=== PATIENT | female | born 1955 | race Caucasian/White ===

== ENCOUNTER → 2019-03-16 10:29 | Outpatient (BNVA) | payer MEDICARE, SELFPAY | PROVIDERS: Family Provider Nurse Practitioner; PCP Nurse Practitioner; Visit Provider Nurse Practitioner Psychiatric/Mental Health | DX: F15.20 Other stimulant dependence, uncomplicated (principal); F43.12 Post-traumatic stress disorder, chronic; F60.3 Borderline personality disorder; F17.210 Nicotine dependence, cigarettes, uncomplicated | CPT/HCPCS: 99214 ==

== ENCOUNTER → 2019-05-28 08:11 | Outpatient (BNVA) | payer BC, MEDICARE, SELFPAY | PROVIDERS: Family Provider Nurse Practitioner; PCP Nurse Practitioner; Visit Provider Nurse Practitioner Psychiatric/Mental Health | DX: F33.1 Major depressive disorder, recurrent, moderate (principal); F43.12 Post-traumatic stress disorder, chronic; F60.3 Borderline personality disorder; F15.20 Other stimulant dependence, uncomplicated; F17.210 Nicotine dependence, cigarettes, uncomplicated | CPT/HCPCS: 99214 ==

== ENCOUNTER → 2019-07-09 08:00 | Outpatient (BNVA) | payer MEDICARE, SELFPAY | PROVIDERS: Family Provider Nurse Practitioner; PCP Nurse Practitioner; Visit Provider Social Worker Clinical | DX: F33.1 Major depressive disorder, recurrent, moderate (principal); F60.3 Borderline personality disorder; F43.12 Post-traumatic stress disorder, chronic; F15.20 Other stimulant dependence, uncomplicated | CPT/HCPCS: 90834 ==

== ENCOUNTER 2019-08-13 09:05 | Outpatient (CLI) | payer MEDICARE, SELFPAY ==
--- NOTE | 2019-08-13 09:12 | MM_ITS ---
WS: [id number] BILATERAL DIGITAL SCREENING MAMMOGRAPHY WITH CAD CLINICAL INFORMATION: SCREENING HISTORY: Screening mammogram. No current complaints. COMPARISON: TECHNIQUE: Bilateral CC and MLO views. FINDINGS: Scattered fibroglandular densities bilaterally. No suspicious focal mass, asymmetry, calcifications, or architectural distortion. No evidence of malignancy. Stable asymmetric densities and isodense nodu les anterior right breast. Stable asymmetric densities left breast. MM/[place] [id number] IMPRESSION: BI-RADS: 2-Benign FOLLOW UP: 1 Year Follow-up Recommend return to annual screening mammography.
== END 2019-08-13 09:06 | disposition home or self-care (01) ==
LOC: RADSHAW 09:08
PROVIDERS: PCP Internal Medicine; Visit Provider Internal Medicine
DX: Z12.31 Encounter for screening mammogram for malignant neoplasm of breast (principal)
CPT/HCPCS: 77067

== ENCOUNTER 2019-08-27 20:43 | Emergency (ER) | payer MEDICARE, SELFPAY ==
[2019-08-27 20:45] VITALS: BP 155/80; PULSE 96; RESP 18; TEMP 36.6; O2SAT 98
[2019-08-27 20:52] VITALS: BP 187/92; PULSE 97; RESP 17; O2SAT 95
--- NOTE | 2019-08-27 20:55 | ED_ITS ---
HPI - Female Genitourinary General: Chief complaint: Urogenital-Female Stated complaint: REDDNESS TO VAG Time Seen by Provider: 08/27/19 20:55 History of Present Illness: HPI Narrative: Patient is a 63-year-old female comes to the ED with itching and redness of the vagina. Patient says symptoms started 2 weeks ago. She says the main symptom is itching. She is put triple antibiotic ointment on vagina and Vicks vapor rub to try and help with symptoms. She denies any pain or tenderness with genital rash. Denies dysuria, hematuria, vaginal discharge, vaginal bleeding, fever, abdominal pain, nausea/vomiting, diarrhea or constipation. Associated symptoms: Deny abdominal pain, headache(s), nausea or vaginal discharge Review of Systems Const: Denies: fever(s), chills or fatigue Eyes: Denies: change in vision or eye discomfort ENMT: Denies: throat pain, odynophagia, nasal discharge or nasal congestion Card: Denies: chest pain, palpitations, edema, swelling of feet/ankles, dyspnea on exertion or orthopnea Resp: Denies: dyspnea, productive cough or non-productive cough GI: Denies: abdominal pain, nausea, vomiting, diarrhea, constipation or hematochezia : Reports: genital pruritis; Denies: flank pain, difficulty voiding, dysuria, hematuria, genital lesions, vaginal bleeding or vaginal discharge Musc: Denies: neck pain, back pain or extremity swelling Skin/Breast: Denies: rash or new lesions Neuro: Denies: headache(s), numbness in extremities or weakness in extremities PFS ED PFSH: Medical History Amphetamine addiction Borderline personality disorder CAD (coronary artery disease) Chronic post-traumatic stress disorder COPD (chronic obstructive pulmonary disease) DDD (degenerative disc disease), cervical DDD (degenerative disc disease), lumbar GERD (gastroesophageal reflux disease) Hypertension Major depressive disorder, recurrent episode, moderate with anxious distress Nicotine dependence, cigarettes, uncomplicated Polyneuropathy PTSD (post-traumatic stress disorder) RLS (restless legs syndrome) Type 1 diabetes mellitus with hyperglycemia, with long-term current use of insulin Surgical History History of carpal tunnel release of both wrists History of PTCA Hx of bilateral salpingectomy Hx of cholecystectomy Hx of hysterectomy Hx of neck surgery Hx of reduction mammoplasty Hx of shoulder surgery Hx of spinal fusion Family History Son No problems noted. Sister Cancer Sister No problems noted. Sister No problems noted. Mother Diabetes Other Hypertension Social History Smoking and tobacco status: current every day smoker cigarettes Second hand smoke exposure: No Smoking risk assessment/counseling performed?: No Alcohol intake: never Desire information about alcohol rehabilitation?: No Desire information about substance/drug rehabilitation?: No Counseling given: No Current gender identity: Female Physical Exam Const: COMMON NORMALS: no acute distress, patient oriented x3 and alert GENERAL APPEARANCE: cooperative and comfortable HENMT: COMMON NORMALS: normocephalic HEAD & SCALP: normocephalic MOUTH: Normal oral and palatal mucosa present THROAT: posterior oropharynx normal and uvula midline Neck/C-Spine: COMMON NORMALS: supple GENERAL: Yes normal visual inspection Resp: COMMON NORMALS: normal respiratory effort, No retractions, No use of accessory muscles and clear to auscultation bilaterally AUSCULTATION: clear to auscultation bilaterally Cardio: COMMON NORMALS: regular rate, regular rhythm, S1 normal heart sound present, S2 normal heart sound present, No gallops present (Cardio), No clicks present (Cardio), No murmurs present (Cardio) and Peripheral pulses 2+ through out RATE: regular rate RHYTHM: regular rhythm HEART SOUNDS: S1 normal heart sound present and S2 normal heart sound present PERIPHERAL PULSES: Peripheral pulses 2+ throughout GI: COMMON NORMALS: Normal to inspection, nondistended, normoactive bowel sounds present, Soft to palpation, non-tender and no masses PALPATION: Yes Soft to palpation : COMMON NORMALS: Yes no CVA tenderness BLADDER/KIDNEY EXAM: Yes no CVA tenderness EXTERNAL FEMALE EXAM: Yes erythema, No externally tender, Yes external swelling and No lesion OTHER: During genital exam nurse was in the room. Patient's vagina had erythema but no tenderness. No vaginal discharge or lesions seen. Genital area appeared to have lichen sclerosus. LAMAR wet prep was performed as well during exam. Back/Pelvis: COMMON NORMALS: no CVA tenderness Extremity: COMMON NORMALS: normal to inspection and no pedal edema Neuro: COMMON NORMALS: patient oriented x3 and moves all extremities SENSORIUM/ORIENTATION: Yes alert Skin: GENERAL SKIN EXAM: dry skin Course Vital Signs: Vital signs: Vital Signs Temperature 97.8 F 08/27/19 20:45 Pulse Rate 97 08/27/19 20:52 Respiratory Rate 17 08/27/19 20:52 Blood Pressure 187/92 08/27/19 20:52 Pulse Oximetry 95 08/27/19 20:52 MDM - Female MDM Narrative: Medical decision making narrative: Patient is a 63-year-old female comes to the ED with general itching and erythema. Physical exam of the genital area showed some erythema and thickness of the genital area. No tenderness, vaginal discharge or bleeding seen. LAMAR wet prep was performed and it showed no BV, trichomonas or candidiasis. UA was unremarkable. With patient's symptoms and appearance of genital area she was diagnosed with lichen sclerosus of female genitalia. I ordered patient to receive some triamcinolone ointment while here in the ED. Discharge paperwork was complete and I was sending patient home with a prescription for triamcinolone ointment. When I went to the room to talk with patient about discharge she was not present. Nurse said that she has checked on patient's room multiple times and it appears that she has left AMA without getting any discharge instructions. Lab Data: Attestation: I reviewed the patient's lab results. Labs: Lab Results 08/27/19 Range/Units 20:55 Urine Color Yellow (Yellow) Urine Appearance Clear (CLEAR) Urine pH 7 (5-7) Ur Specific Gravit y 1.005 (1.005-1.030) Urine Protein Neg (Negative) Urine Glucose (UA) 4+ H (Normal) Urine Ketones Negative (Negative) Urine Blood Neg (Negative) Urine Nitrate Negative (Negative) Urine Bilirubin Neg (NEGATIVE) Urine Urobilinogen Norm (Negative) mg/dL Ur Leukocyte Margarita ase Negative (Negative) Urine RBC None (0-2) /hpf Urine WBC None (0-5) /hpf Ur Squamous Epith Cells 0-4 H (0-5) Ur Transition Epit h Cell None /hpf Ur Renal Epithelia l Cell None /hpf Urine Bacteria None (NONE) Discharge Plan Discharge Patient Disposition: Home, Self-Care Clinical Impression: Lichen sclerosus of female genitalia Condition: Stable Prescriptions: New triamcinolone acetonide 0.1 % ointment 1 applic TOPICAL DAILY Qty: 30 RF: 0 No Action Victoza 2-Kip 0.6 mg/0.1 mL (18 mg/3 mL) pen injector 1.2 mg SUBCUT Q24H RF: 0 Humalog U-100 Insulin 100 unit/mL cartridge See Rx Instructions SUBCUT TID RF: 0 albuterol sulfate [ProAir HFA] 90 mcg/actuation HFA aerosol inhaler 2 puff INHALATION Q4H PRNRF: 0 venlafaxine [Effexor XR] 150 mg capsule,extended release 24hr 150 mg PO QAM Qty: 30 RF: 3 trazodone 100 mg tablet 300 mg PO .bedtime Qty: 90 RF: 3 hydroxyzine HCl 50 mg tablet 50 mg PO TID PRN (Reason: anxiety) Qty: 90 RF: 3 buspirone 15 mg tablet 15 mg PO TID Qty: 90 RF: 3 omeprazole 20 mg capsule,delayed release(DR/EC) 20 mg PO DAILY Qty: 30 RF: 2 metformin 1,000 mg tablet,ER shabbir.retention 24 hr 1,000 mg PO BID Qty: 60 RF: 2 meloxicam 15 mg tablet 15 mg PO DAILY Qty: 30 RF: 2 lisinopril 5 mg tablet 5 mg PO DAILY Qty: 30 RF: 2 furosemide 40 mg tablet 40 mg PO QAM Qty: 30 RF: 2 fluticasone propion-salmeterol [Wixela Inhub] 500-50 mcg/dose blister with device 1 inh INHALATION Q12H Qty: 60 RF: 2 rosuvastatin 40 mg tablet 40 mg PO DAILY Qty: 30 RF: 2 gabapentin 300 mg capsule 300 mg PO TID 90 Days Qty: 270 RF: 1 metoprolol succinate 25 mg tablet extended release 24 hr 25 mg PO ONCE 90 Days Qty: 90 RF: 0 ropinirole 1 mg tablet 1 mg PO TID 30 Days Qty: 90 RF: 1 Discharge Orders: Discharge Order (Routine); Ordered 08/27/19 Ordered By: Jean Quintero Referrals: Olivia Duke MD [Primary Care Provider] - Discharge Diet: Regular Discharge Activity: Resume usual activity Activity Restrictions/Additional Instructions: Follow-up with medical provider as directed in 7 days. Take medications as prescribed. Apply triamcinolone ointment on genital area daily to help with symptoms. Return to the ER or your medical provider if condition worsens. Please read and understand discharge instructions. If any questions, please ask. Discharge Date/Time: 08/27/19 23:34 Coding Level of Care Code ED Operations Supervisor Chemical Cleaning for Lor Fwd Exam Comprehensive
[2019-08-27 21:53] LABS: Bilirubin Urine Neg (NEGATIVE); Blood Urine Neg (Negative); Glucose Urine UA 4+ (Normal); Ketones Urine Negative (Negative); Leukocyte Esterase Urine Negative (Negative); Nitrate Urine Negative (Negative); Protein Urine Neg (Negative); Specific Gravity, Urine 1.005 (1.005-1.030); Urine Appearance Clear (CLEAR); Urine Color Yellow (Yellow); Urobilinogen Urine Norm (Negative); pH Urine 7 (5-7)
[2019-08-27 21:54] LABS: Add Urine Culture? No; Squamous Epithelial Cell Urine 0-4 (0-5)
--- NOTE | 2019-08-27 23:19 | PC.NURSE ---
ATTEMPTED TO DISCHARGE PT, PT NOT IN ROOM. LOOKED FOR PT IN WAITING AREA. REPORTED TO CHARGE NURSE THAT PT WAS NOT FOUND. WAS INSTRUCTED TO WAIT A LITTLE TIME LONGER AND ATTEMPT TO CALL PT AGAIN.
== END 2019-08-27 23:34 | disposition home or self-care (01) ==
PROVIDERS: Emergency Provider Physician Assistant; PCP Internal Medicine
DX: L90.0 Lichen sclerosus et atrophicus (principal); Z79.4 Long term (current) use of insulin; F17.210 Nicotine dependence, cigarettes, uncomplicated; I25.10 Atherosclerotic heart disease of native coronary artery without angina pectoris; J44.9 Chronic obstructive pulmonary disease, unspecified; I10 Essential (primary) hypertension; E10.9 Type 1 diabetes mellitus without complications
CPT/HCPCS: 12345; 81001; 87210; 99282; 99283

== ENCOUNTER → 2019-09-06 11:00 | Outpatient (BNVA) | payer MEDICARE, SELFPAY | PROVIDERS: Visit Provider Social Worker Clinical | DX: F33.1 Major depressive disorder, recurrent, moderate (principal); F60.3 Borderline personality disorder; F43.12 Post-traumatic stress disorder, chronic; F15.20 Other stimulant dependence, uncomplicated | CPT/HCPCS: 90834 ==

== ENCOUNTER 2019-09-07 10:12 | Emergency (ER) | payer MEDICARE, SELFPAY ==
[2019-09-07 10:18] VITALS: BP 126/75; PULSE 75; RESP 18; TEMP 37; O2SAT 94; BMI 38.6
--- NOTE | 2019-09-07 10:26 | W.ED.GENADLT ---
HPI - General Adult General: Stated complaint: HIGH BLOOD SUGAR Time Seen by Provider: 09/07/19 10:20 History of Present Illness: HPI narrative: Patient arrives via ambulance with complaints of high blood sugar over the last week. Denies any illnesses. Has she has had some blurry vision with the high blood sugar. MD complaint: Hyperglycemia Onset (ago): week(s) Severity: moderate Associated symptoms: Deny chest pain, dyspnea, headache(s), nausea, rash or vomiting Treatments prior to arrival: none Review of Systems Narrative: Elevated blood sugar Const: Denies: fever(s), chills or body aches Eyes: Reports: blurry vision; Denies: change in vision ENMT: Denies: throat pain or nasal congestion Card: Denies: chest pain or dyspnea on exertion Resp: Denies: dyspnea, productive cough or non-productive cough GI: Denies: abdominal pain, nausea or vomiting Musc: Denies: extremity pain Skin/Breast: Denies: rash Neuro: Denies: headache(s) Psych: Denies: anxiety or depression Chris/Lymph: Denies: easy bruising PFSH ED PFSH: Medical History (Updated 09/04/19 @ 00:00 by ) Amphetamine addiction Borderline personality disorder CAD (coronary artery disease) Chronic post-traumatic stress disorder COPD (chronic obstructive pulmonary disease) DDD (degenerative disc disease), cervical DDD (degenerative disc disease), lumbar GERD (gastroesophageal reflux disease) Hypertension Major depressive disorder, recurrent episode, moderate with anxious distress Nicotine dependence, cigarettes, uncomplicated Polyneuropathy PTSD (post-traumatic stress disorder) RLS (restless legs syndrome) Type 1 diabetes mellitus with hyperglycemia, with long-term current use of insulin Surgical History History of carpal tunnel release of both wrists History of PTCA Hx of bilateral salpingectomy Hx of cholecystectomy Hx of hysterectomy Hx of neck surgery Hx of reduction mammoplasty Hx of shoulder surgery Hx of spinal fusion Family History Son No problems noted. Sister Cancer Sister No problems noted. Sister No problems noted. Mother Diabetes Other Hypertension Social History Smoking and tobacco status: current every day smoker cigarettes Second hand smoke exposure: No Smoking risk assessment/counseling performed?: No Alcohol intake: never Desire information about alcohol rehabilitation?: No Desire information about substance/drug rehabilitation?: No Counseling given: No Current gender identity: Female Physical Exam Const: COMMON NORMALS: no acute distress, average body habitus and patient oriented x3 HENMT: COMMON NORMALS: normocephalic HEAD & SCALP: normal to inspection and normocephalic FACE & SINUS: normal facial exam Eye: COMMON NORMALS: conjunctivae normal GENERAL EYE: appearance normal, both eyes and all related structures CONJUNCTIVA: Yes conjunctivae normal Neck/C-Spine: COMMON NORMALS: no JVD Chest: COMMONS NORMALS: normal inspection of the chest Resp: COMMON NORMALS: normal respiratory effort and clear to auscultation bilaterally AUSCULTATION: clear to auscultation bilaterally Cardio: COMMON NORMALS: no JVD, regular rate and regular rhythm RATE: regular rate RHYTHM: regular rhythm GI: COMMON NORMALS: Normal to inspection, nondistended, normoactive bowel sounds present Extremity: COMMON NORMALS: normal to inspection and full ROM Neuro: COMMON NORMALS: patient oriented x3 Discharge Plan Discharge Prescriptions: No Action Victoza 2-Kip 0.6 mg/0.1 mL (18 mg/3 mL) pen injector 1.2 mg SUBCUT Q24H RF: 0 Humalog U-100 Insulin 100 unit/mL cartridge See Rx Instructions SUBCUT TID RF: 0 albuterol sulfate [ProAir HFA] 90 mcg/actuation HFA aerosol inhaler 2 puff INHALATION Q4H PRNRF: 0 venlafaxine [Effexor XR] 150 mg capsule,extended release 24hr 150 mg PO QAM Qty: 30 RF: 3 trazodone 100 mg tablet 300 mg PO .bedtime Qty: 90 RF: 3 hydroxyzine HCl 50 mg tablet 50 mg PO TID PRN (Reason: anxiety) Qty: 90 RF: 3 buspirone 15 mg tablet 15 mg PO TID Qty: 90 RF: 3 omeprazole 20 mg capsule,delayed release(DR/EC) 20 mg PO DAILY Qty: 30 RF: 2 metformin 1,000 mg tablet,ER shabbir.retention 24 hr 1,000 mg PO BID Qty: 60 RF: 2 meloxicam 15 mg tablet 15 mg PO DAILY Qty: 30 RF: 2 lisinopril 5 mg tablet 5 mg PO DAILY Qty: 30 RF: 2 furosemide 40 mg tablet 40 mg PO QAM Qty: 30 RF: 2 fluticasone propion-salmeterol [Wixela Inhub] 500-50 mcg/dose blister with device 1 inh INHALATION Q12H Qty: 60 RF: 2 rosuvastatin 40 mg tablet 40 mg PO DAILY Qty: 30 RF: 2 gabapentin 300 mg capsule 300 mg PO TID 90 Days Qty: 270 RF: 1 metoprolol succinate 25 mg tablet extended release 24 hr 25 mg PO ONCE 90 Days Qty: 90 RF: 0 ropinirole 1 mg tablet 1 mg PO TID 30 Days Qty: 90 RF: 1 triamcinolone acetonide 0.1 % ointment 1 applic TOPICAL DAILY Qty: 30 RF: 0 Coding Level of Care Code ED Demo Event Specialist for Lor [place]
[2019-09-07 10:30] VITALS: BP 129/83; PULSE 74; RESP 18; O2SAT 96
[2019-09-07 10:44] LABS: ABG PCO2 42.5 mmHg (35-45); ABG PH Result 7.39 (7.35-7.45); Arterial Blood Gas Hematocrit 38.4 % (37-47); Base Excess ABG 0.6 mmol/L (-2.0-2.0); Blood Gas Allen Test Pos; Blood Gas Operator Identificat AMH; Blood Gas Sample Site Radial, right; Blood Gas Sample Type Arterial; HCO3 ABG 25.7 mmol/L (22-26); Oxygen Device ROOM AIR; PO2 ABG 77.4 mmHg (80.0-100.0)
[2019-09-07 10:53] LABS: Basophils % 0.2 %; Eosinophils # 0.3 10^3/uL (0.0-0.8); Eosinophils % 3.4 %; Hematocrit 37.4 % (37.0-47.0); Hemoglobin 12.1 g/dL (11.5-15.3); Lymphocytes % 33.2 %; Mean Corpuscular HGB Conc 32.4 g/dL (30.0-36.0); Mean Corpuscular Hemoglobin 28.9 pg (28.0-34.0); Mean Corpuscular Volume 89.5 fL (81-99); Mean Platelet Volume 8.7 fL (7.4-10.4); Monocytes # 0.7 10^3/uL (0.2-0.9); Monocytes % 7.3 %; Neutrophils % 55.7 %; Nucleated Red Blood Cells % 0 %; Platelet Count 319 10^3/cmm (130-400); Red Blood Count 4.18 10^6/uL (4.1-5.3); Red Cell Distribution Width 12.9 % (12.1-15.1)
[2019-09-07] MEDS: sodium chloride 0.9% 1,000 ML 999 ML IV (10:53)
[2019-09-07 10:59] LABS: Glucose Point of Care 309 mg/dL (70-110)
[2019-09-07 11:04] LABS: Ketone (Acetest) Serum Negative (Negative)
[2019-09-07 11:08] LABS: Alanine Aminotransferase 11 U/L (0-33); Albumin Level 4.2 g/dL (3.5-5.2); Alkaline Phosphatase 100 IU/L (35-105); Anion Gap 14.9 (5-19); Aspartate Amino Transferase 14 U/L (0-32); Blood Urea Nitrogen 15 mg/dL (8-23); Calcium 9.4 mg/dL (8.5-10.5); Carbon Dioxide 24 mmol/L (22-29); Chloride 100 mmol/L (98-107); Globulin 2.2 g/dL (1.3-4.6); Glucose 285 mg/dL (65-115); Lipase 239 U/L (13-60); Osmolality Calculated 287 mOsm/kg (285-295); Potassium 3.9 mmol/L (3.5-5.1); Sodium 135 mmol/L (136-145); Total Bilirubin 0.2 mg/dL (0.15-1.2); Total Protein 6.4 g/dL (6.6-8.7)
--- NOTE | 2019-09-07 11:25 | CT_ITS ---
WS: [id number] CT ABDOMEN PELVIS TECHNIQUE: Contrast-enhanced CT of the abdomen and pelvis with coronal and sagittal reformatted image s. CLINICAL INFORMATION: pain, elevated lipase COMPARISON: CT 4 DLP: 2062.[address] scans at [facility] use at least one of these dose optimization techniques: automat ed exposure control; mA and/or kV adjustment per patient size (includes targeted exams where dose is matched to clinical indication); or iterative reconstruction. FINDINGS: Diffuse fatty infiltration of the liver. Prior cholecystectomy and hysterectomy. Chronic right rib fr actures with callus formation. Subsegmental atelectasis in the lung bases. Homogeneous pancreatic enhancement. No definite evidence of peripancreatic inflammation or edema to i ndicate acute pancreatitis. Portal vein and splenic veins are patent. Normal spleen. Small esophageal hiatal hernia. Adrenal glands are normal. Normal renal parenchymal enhancement. No hydronephrosis. N ormal renal cortical atrophy. No hydronephrosis. Ureters are decompressed. No abdominal lymphadenopat hy. No pelvic lymphadenopathy. Aortic calcification. Normal caliber abdominal aorta. Sigmoid diverticulosis. No evidence of acute diverticulitis. No evidence of high-grade obstruction. N ormal small and large bowel. Mild lumbar curve. Chronic compression with vertebroplasty changes at T12. Mild chronic anterior wedg ing at L1. CT/CT abdomen pelvis w con* [id number] IMPRESSION: 1. No definite evidence of pancreatitis or peripancreatic inflammation. 2. Hepatomegaly with diffuse fatty infiltration unchanged from previous. 3. Cholecystectomy and hysterectomy. 4. Small esophageal hiatal hernia. 5. Diverticulosis. No evidence of acute diverticulitis. 6. No other acute findings.
[2019-09-07 11:30] LABS: Add Urine Microscopic? YES; Bilirubin Urine Neg (NEGATIVE); Blood Urine Neg (Negative); Glucose Urine UA 4+ (Normal); Ketones Urine Negative (Negative); Leukocyte Esterase Urine 1+ (Negative); Nitrate Urine Negative (Negative); Protein Urine Neg (Negative); Urine Appearance Clear (CLEAR); Urine Color Yellow (Yellow); Urobilinogen Urine Norm (Negative)
[2019-09-07 11:43] LABS: Add Urine Culture? Yes; Bacteria Urine TRACE; Squamous Epithelial Cell Urine 0-4 (0-5); WBC Urine 0-4 /hpf (0-5)
[2019-09-07] MEDS: iohexol 300 mg/mL 100 mL Btl IV (12:07)
[2019-09-07 12:30] VITALS: BP 185/102; PULSE 74; RESP 18; O2SAT 99
[2019-09-07 13:10] VITALS: BP 183/113; PULSE 78; O2SAT 98
== END 2019-09-07 13:10 | disposition home or self-care (01) ==
PROVIDERS: Emergency Provider Nurse Practitioner Family
DX: E10.65 Type 1 diabetes mellitus with hyperglycemia (principal); Z79.4 Long term (current) use of insulin; I25.10 Atherosclerotic heart disease of native coronary artery without angina pectoris; J44.9 Chronic obstructive pulmonary disease, unspecified; I10 Essential (primary) hypertension; E10.42 Type 1 diabetes mellitus with diabetic polyneuropathy; F17.210 Nicotine dependence, cigarettes, uncomplicated; Z79.899 Other long term (current) drug therapy
CPT/HCPCS: 12345; 36416; 36600; 74177; 80053; 81001; 81003; 82009; 82803; 82962; 83690; 85025; 87077; 87086; 87186; 96360; 99283; J7030; Q9967

== ENCOUNTER → 2019-11-15 08:15 | Outpatient (BNVA) | payer MEDICARE, SELFPAY | PROVIDERS: PCP Internal Medicine; Visit Provider Nurse Practitioner Psychiatric/Mental Health | DX: F33.1 Major depressive disorder, recurrent, moderate (principal); F15.20 Other stimulant dependence, uncomplicated; F43.12 Post-traumatic stress disorder, chronic; F60.3 Borderline personality disorder; F17.210 Nicotine dependence, cigarettes, uncomplicated | CPT/HCPCS: 99213 ==

== ENCOUNTER 2020-05-26 14:18 | Outpatient (RCR) | payer MEDICARE, MEDICAID, SELFPAY | END 2020-06-06 23:59 | disposition home or self-care (01) | LOC: WOUND 14:18 | PROVIDERS: PCP Internal Medicine; Visit Provider Nurse Practitioner Family | DX: L98.492 Non-pressure chronic ulcer of skin of other sites with fat layer exposed (principal) | CPT/HCPCS: 11042; G0463 ==

== ENCOUNTER 2020-09-28 21:19 | Emergency (ER) | payer MEDICARE, MEDICAID, SELFPAY ==
[2020-09-28 21:22] VITALS: BP 135/87; PULSE 78; RESP 18; TEMP 37.3; O2SAT 96; BMI 36.0
--- NOTE | 2020-09-28 21:30 | XRR_ITS ---
PROCEDURE INFORMATION: Exam: XR Left Hip Exam date and time: 09/28/2020 9:30 PM Age: 64 years old Clinical indication: Hip pain and pelvic pain; Left hip; Additional info: Pain, with pelvis TECHNIQUE: Imaging protocol: XR Left hip. Views: 2 or 3 views hip with pelvis when performed. COMPARISON: CT abdomen pelvis w con* [id number] 09/07/2019 12:00 PM FINDINGS: Bones/joints: Unremarkable. No acute fracture. Soft tissues: Unremarkable. XR/XR hip LT 2-3V wo/w pel* [id number] IMPRESSION: No acute findings.
--- NOTE | 2020-09-28 21:32 | W.ED.FALL ---
HPI - Fall General: Chief Complaint: Fall Stated Complaint: fall Time Seen by Provider: 09/28/20 21:29 History of Present Illness: HPI Narrative: Patient arrived via ambulance complains of left hip pain after slipping in the shower striking her left hip. She is able to move her leg without difficulty. This occurred earlier this evening. complaint: fall Onset (ago): minute(s) Fall from: standing Fall witnessed: no Place fall occurred: home Loss of consciousness: None Prolonged down time: no Symptoms prior to fall: none Context: tripped/slipped Location of injury: pelvis Severity: mild Severity scale (1-10): 1 Quality: aching Associated symptoms-after fall: Reports no associated symptoms; Denies abdominal pain, chest pain or headache(s) Review of Systems Const: Denies: fever(s), chills or body aches Eyes: Denies: change in vision or blurry vision ENMT: Denies: throat pain or nasal congestion Card: Denies: chest pain or dyspnea on exertion Resp: Denies: dyspnea, productive cough or non-productive cough GI: Denies: abdominal pain, nausea or vomiting Musc: Reports: joint pain (Left hip from a fall earlier tonight); Denies: extremity pain Skin/Breast: Denies: rash Neuro: Denies: headache(s) Psych: Denies: anxiety or depression Chris/Lymph: Denies: easy bruising PFSH ED PFSH: Medical History 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, drug screen ordered in August 2019 Borderline personality disorder CAD (coronary artery disease) Chronic post-traumatic stress disorder COPD (chronic obstructive pulmonary disease) DDD (degenerative disc disease), cervical DDD (degenerative disc disease), lumbar GERD (gastroesophageal reflux disease) Hypertension Major depressive disorder, recurrent episode, moderate with anxious distress Nicotine dependence, cigarettes, uncomplicated Polyneuropathy PTSD (post-traumatic stress disorder) RLS (restless legs syndrome) Uncontrolled type 2 diabetes mellitus, with long-term current use of insulin Surgical History History of carpal tunnel release of both wrists History of PTCA Hx of bilateral salpingectomy Hx of cholecystectomy Hx of hysterectomy Hx of neck surgery Hx of reduction mammoplasty Hx of shoulder surgery Hx of spinal fusion Family History Son No problems noted. Sister Cancer Sister No problems noted. Sister No problems noted. Mother Diabetes Other Hypertension Social History Smoking and tobacco status: current every day smoker cigarettes Packs smoked per day: 0.25 Second hand smoke exposure: No Smoking risk assessment/counseling performed?: No Alcohol intake: never Desire information about alcohol rehabilitation?: No Desire information about substance/drug rehabilitation?: No Counseling given: No Current gender identity: Female Physical Exam Const: COMMON NORMALS: no acute distress, average body habitus and patient oriented x3 HENMT: COMMON NORMALS: normocephalic HEAD & SCALP: normal to inspection and normocephalic FACE & SINUS: normal facial exam Eye: COMMON NORMALS: conjunctivae normal GENERAL EYE: appearance normal, both eyes and all related structures CONJUNCTIVA: Yes conjunctivae normal Neck/C-Spine: COMMON NORMALS: no JVD Chest: COMMONS NORMALS: normal inspection of the chest Resp: COMMON NORMALS: normal respiratory effort and clear to auscultation bilaterally AUSCULTATION: clear to auscultation bilaterally Cardio: COMMON NORMALS: no JVD, regular rate and regular rhythm RATE: regular rate RHYTHM: regular rhythm GI: COMMON NORMALS: Normal to inspection, nondistended, normoactive bowel sounds present Extremity: COMMON NORMALS: normal to inspection and full ROM LEFT LOWER EXTREMITY: Yes hip joint (Tender to touch outer aspect. Had full range of motion leg able to move th) Left hip: Yes ROM (Full but limited due to pain.) and Yes neurovascular exam (Intact) OTHER: No other bony injuries noted. Neuro: COMMON NORMALS: patient oriented x3 Course Vital Signs: Vital signs: Vital Signs Temperature 99.1 F 09/28/20 21:22 Pulse Rate 78 09/28/20 21:22 Respiratory Rate 18 09/28/20 21:22 Blood Pressure 135/87 09/28/20 21:22 Pulse Oximetry 96 09/28/20 21:22 Discharge Plan Discharge Prescriptions: No Action Victoza 2-Kip 0.6 mg/0.1 mL (18 mg/3 mL) pen injector 1.2 mg SUBCUT Q24H RF: 0 albuterol sulfate [ProAir HFA] 90 mcg/actuation HFA aerosol inhaler 2 puff INHALATION Q4H PRNRF: 0 metoprolol succinate 25 mg tablet extended release 24 hr 25 mg PO ONCE 90 Days Qty: 90 RF: 0 trazodone 100 mg tablet 300 mg PO .bedtime PRN (Reason: insomnia) Qty: 90 RF: 0 venlafaxine [Effexor XR] 150 mg capsule,extended release 24hr 150 mg PO QAM Qty: 30 RF: 0 buspirone 15 mg tablet 15 mg PO TID Qty: 90 RF: 0 fluconazole [Diflucan] 150 mg tablet 150 mg PO Q3D Qty: 2 RF: 0 cephalexin 500 mg capsule 500 mg PO TID 7 Days Qty: 21 RF: 0 fluticasone propion-salmeterol [Wixela Inhub] 500-50 mcg/dose blister with device 1 inh INHALATION Q12H Qty: 60 RF: 2 rosuvastatin 40 mg tablet 40 mg PO DAILY Qty: 30 RF: 2 gabapentin 300 mg capsule 300 mg PO TID 90 Days Qty: 270 RF: 1 ropinirole 1 mg tablet 1 mg PO TID 30 Days Qty: 90 RF: 1 meloxicam 15 mg tablet 15 mg PO DAILY Qty: 30 RF: 0 omeprazole 20 mg capsule,delayed release(DR/EC) 20 mg PO DAILY Qty: 30 RF: 0 furosemide 40 mg tablet 40 mg PO QAM Qty: 7 RF: 0 metformin 1,000 mg tablet,ER shabbir.retention 24 hr 1,000 mg PO BID Qty: 14 RF: 0 lisinopril 5 mg tablet 5 mg PO DAILY Qty: 7 RF: 0 Coding Level of Care Code ED Optometric Assistant for Taylorg Fwmarsha
[2020-09-28 22:27] VITALS: BP 131/88; PULSE 80; RESP 18; O2SAT 97
== END 2020-09-28 22:28 | disposition home or self-care (01) ==
PROVIDERS: Emergency Provider Nurse Practitioner Family; PCP Internal Medicine
DX: M25.552 Pain in left hip (principal); E11.9 Type 2 diabetes mellitus without complications; I10 Essential (primary) hypertension; J44.9 Chronic obstructive pulmonary disease, unspecified; I25.10 Atherosclerotic heart disease of native coronary artery without angina pectoris; F17.210 Nicotine dependence, cigarettes, uncomplicated; Z79.84 Long term (current) use of oral hypoglycemic drugs
CPT/HCPCS: 73502; 99282

== ENCOUNTER 2020-11-07 13:32 | Emergency (ER) | payer MEDICARE, MEDICAID, SELFPAY ==
[2020-11-07] VITALS (7 sets, daily range): BP systolic 106–171; BP diastolic 74–97; PULSE 80–91; RESP 14–20; TEMP 36.4; O2SAT 93–95
--- NOTE | 2020-11-07 14:03 | W.ED.GENADLT ---
HPI - General Adult General: Chief complaint: General Medical Stated complaint: HIGH BLOOD SUGAR, HTN, BOWEL INCONTINENCE Time Seen by Provider: 11/07/20 14:03 History of Present Illness: HPI narrative: Ms. Ramirez is a 65-year-old lady with history of obesity, hypertension, COPD, diabetes who presents emergency department due to high blood sugar and high blood pressure. She reports a number of months now of challenges regarding self-care. She has difficulty due to chronic pain getting around her house which limits her ability to take medications, get medications, and ambulate to the bathroom. She has been out of insulin for a number of days now and noted that her blood sugar was elevated. She also took her blood pressure at home and it was elevated. There is mention in the triage note has bowel incontinence however she denies true incontinence, she does have difficulty ambulating to bathroom and therefore has had times where she is unable to make it to the bathroom in time. Overall the intensity of generalized symptoms is moderate to severe. She has associated generalized malaise, weakness, and falls including rib pain on the right. The course has been worsening. She is accompanied by her niece who is concerned about her ability to care for herself. 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, drug screen ordered in August 2019 Borderline personality disorder CAD (coronary artery disease) Chronic post-traumatic stress disorder COPD (chronic obstructive pulmonary disease) DDD (degenerative disc disease), cervical DDD (degenerative disc disease), lumbar GERD (gastroesophageal reflux disease) Hypertension Major depressive disorder, recurrent episode, moderate with anxious distress Nicotine dependence, cigarettes, uncomplicated Polyneuropathy PTSD (post-traumatic stress disorder) RLS (restless legs syndrome) Uncontrolled type 2 diabetes mellitus, with long-term current use of insulin Surgical History History of carpal tunnel release of both wrists History of PTCA Hx of bilateral salpingectomy Hx of cholecystectomy Hx of hysterectomy Hx of neck surgery Hx of reduction mammoplasty Hx of shoulder surgery Hx of spinal fusion Family History Son No problems noted. Sister Cancer Sister No problems noted. Sister No problems noted. Mother Diabetes Other Hypertension Social History Smoking and tobacco status: current every day smoker cigarettes Packs smoked per day: 0.25 Second hand smoke exposure: No Smoking risk assessment/counseling performed?: No Alcohol intake: never Desire information about alcohol rehabilitation?: No Desire information about substance/drug rehabilitation?: No Counseling given: No Current gender identity: Female Physical Exam Narrative: EXAM NARRATIVE: GENERAL/CONSTITUTIONAL -chronically ill-appearing. No acute distress. Obese. Eyes - PERRL, no conjunctival injection ENMT - Atraumatic external nose and ears. Moist mucous membranes NECK - supple. trachea midline CARDIOVASCULAR - regular rate and rhythm. Peripheral pulses 2+ and equal RESPIRATORY -clear to auscultation bilaterally. No retractions or accessory muscle use. ABDOMEN/GI -right upper quadrant tenderness palpation. Nondistended. No tenderness to percussion or evidence of peritonitis MSK - Extremities without obvious deformity or tenderness to palpation SKIN - Warm, Dry NEURO - alert and appropriately oriented. Cranial nerves II through XII intact. Strength and sensation intact. Moves all extremities equally. PSYCH - Appropriate mood and affect Course ED course: - Patient was seen and evaluated by me at bedside - Patient placed on cardiac monitors, IV access obtained - Initial evaluation notable for as noted above, no acute distress. Nontoxic. - Labs notable for mild leukocytosis, metabolic panel consistent with likely dehydration. Blood glucose elevated without evidence of diabetic ketoacidosis. Insulin ordered. No evidence of urinary tract infection. - Imaging notable for no acute abnormality to explain increased frequency of falls, abdominal/rib pain. - Upon serial reexamination after treatment the patient was improved - I did discuss the case with case management who discussed with the patient. Unfortunately, due to the fact that is a Tuesday afternoon we are unable to assist the patient with placement, will attempt to assist on Tuesday. - Based on patient history, evaluation, labs, and imaging as interpreted the most likely cause of the patient's condition is hyperglycemia without evidence of DKA and difficulty with ADLs. - The results of ED evaluation were discussed with the patient including prescriptions and/or symptomatic cares (if applicable) including appropriate and responsible use, followup plan, and return precautions. The patient verbalized understanding and felt safe for discharge. - Patient discharged in satisfactory condition. Vital Signs: Vital signs: Vital Signs Temperature 97.5 F L 11/07/20 14:02 Pulse Rate 86 11/07/20 20:18 Respiratory Rate 20 H 11/07/20 20:18 Blood Pressure 165/97 11/07/20 20:18 Pulse Oximetry 94 11/07/20 20:18 [facility] - General Adult Medical Records: Attestation: I reviewed the patient's medical records. Lab Data: Attestation: I reviewed the patient's lab results. Labs: Lab Results 11/07/20 11/07/20 11/07/20 13:59 14:18 14:18 WBC 10.3 10^3/uL H 10 ^3/uL (4.0-10.0) RBC 5.26 10^6/uL 10^6 /uL (4.1-5.3) Hgb 15.3 g/dL g/dL (11.5-15.3) Hct 45.1 % % (37.0-47.0) MCV 85.7 fl fl (81-99) MCH 29.1 pg pg (28.0-34.0) MCHC 33.9 g/dL g/dL (30.0-36.0) RDW 13.0 % % (12.1-15.1) Plt Count 402 10^3/cmm H 10 ^3/cmm (130-400) MPV 9.0 fL fL (7.4-10.4) Neut % (Auto) 65.4 % % Lymph % (Auto) 22.5 % % Wise % (Auto) 9.9 % % Eos % (Auto) 1.4 % % Baso % (Auto) 0.4 % % Neut # (Auto) 6.73 10^3/uL 10^3 /uL (1.8-7.7) Lymph # (Auto) 2.3 10^3/uL 10^3/ uL (0.8-4.8) Wise # (Auto) 1.0 10^3/uL H 10^ 3/uL (0.2-0.9) Eos # (Auto) 0.1 10^3/uL 10^3/ uL (0.0-0.8) Baso # (Auto) 0.0 10^3/uL 10^3/ uL (0.0-0.1) Nucleated RBC % (a uto) 0 % % Nucleated RBCs # 0.0 /100WBC /100W BC Specimen Type Sample Site ABG pH ABG pCO2 ABG pO2 ABG HCO3 ABG Base Excess Thai Test Hematocrit O2 Delivery Device FiO2 Nutritional Chemist ID Sodium 130 mmol/L L mmol /L (136-145) Potassium 3.6 mmol/L mmol/L (3.5-5.1) Chloride 90 mmol/L L mmol/ L (98-107) Carbon Dioxide 24 mmol/L mmol/L (22-29) Anion Gap 19.6 H (5-19) BUN 17 mg/dL mg/dL (8-23) Creatinine 0.8 mg/dL mg/dL (0.5-0.9) GFR Calculation 71.5 mL/min L mL/ min (90-130) Glucose 571 mg/dL H* mg/d L (65-115) POC Glucose 594 mg/dL H* mg/d L (70-110) Calculated Osmolal ity 298 mOsm/kg H mOs m/kg (285-295) Calcium 9.4 mg/dL mg/dL (8.5-10.5) Total Bilirubin 0.2 mg/dL mg/dL (0.15-1.2) AST 12 U/L U/L (0-32) ALT 12 U/L U/L (0-33) Alkaline Phosphata se 161 IU/L H IU/L (35-105) Troponin T Baselin e Troponin T 120 Min [place] Troponin T Total Protein 6.7 g/dL g/dL (6.6-8.7) Albumin 4.3 g/dL g/dL (3.5-5.2) Globulin 2.4 g/dL g/dL (1.3-4.6) TSH 1.28 uIU/mL uIU/m L (0.27-4.20) Urine Color Urine Appearance Urine pH Ur Specific Gravit y Urine Protein Urine Glucose (UA) Urine Ketones Urine Blood Urine Nitrate Urine Bilirubin Urine Urobilinogen Ur Leukocyte Margarita ase 11/07/20 11/07/20 11/07/20 14:18 14:39 16:03 WBC RBC Hgb Hct MCV MCH MCHC RDW Plt Count MPV Neut % (Auto) Lymph % (Auto) Wise % (Auto) Eos % (Auto) Baso % (Auto) Neut # (Auto) Lymph # (Auto) Wise # (Auto) Eos # (Auto) Baso # (Auto) Nucleated RBC % (a uto) Nucleated RBCs # Specimen Type Arterial Sample Site Radial, right ABG pH 7.42 (7.35-7.45) ABG pCO2 41.0 mmHg mmHg (35-45) ABG pO2 64.6 mmHg L mmHg (80.0-100.0) ABG HCO3 26.8 mmol/L H mmo l/L (22-26) ABG Base Excess 2.1 mmol/L H mmol /L (-2.0-2.0) Thai Test Pos Hematocrit 46.7 % % (37-47) O2 Delivery Device Room air FiO2 21.0 % % Nutritional Chemist ID Ed Sodium Potassium Chloride Carbon Dioxide Anion Gap BUN Creatinine GFR Calculation Glucose POC Glucose Calculated Osmolal ity Calcium Total Bilirubin AST ALT Alkaline Phosphata se Troponin T Baselin e 14 ng/L H ng/L (0-10) Troponin T 120 Min [place] Troponin T Total Protein Albumin Globulin TSH Urine Color Straw (Yellow) Urine Appearance Clear (CLEAR) Urine pH 5 (5-7) Ur Specific Gravit y 1.010 (1.005-1.030) Urine Protein Neg (Negative) Urine Glucose (UA) 4+ H (Normal) Urine Ketones Negative (Negative) Urine Blood Neg (Negative) Urine Nitrate Negative (Negative) Urine Bilirubin Neg (Negative) Urine Urobilinogen Norm mg/dL mg/dL (Negative) Ur Leukocyte Margarita ase Negative (Negative) 11/07/20 11/07/20 16:30 17:41 WBC RBC Hgb Hct MCV MCH MCHC RDW Plt Count MPV Neut % (Auto) Lymph % (Auto) Wise % (Auto) Eos % (Auto) Baso % (Auto) Neut # (Auto) Lymph # (Auto) Wise # (Auto) Eos # (Auto) Baso # (Auto) Nucleated RBC % (a uto) Nucleated RBCs # Specimen Type Sample Site ABG pH ABG pCO2 ABG pO2 ABG HCO3 ABG Base Excess Thai Test Hematocrit O2 Delivery Device FiO2 Nutritional Chemist ID Sodium Potassium Chloride Carbon Dioxide Anion Gap BUN Creatinine GFR Calculation Glucose POC Glucose 329 mg/dL H mg/dL (70-110) Calculated Osmolal ity Calcium Total Bilirubin AST ALT Alkaline Phosphata se Troponin T Baselin e Troponin T 120 Min [place] 13.03 ng/L H ng/L (0-10) Delta Troponin T -0.97 ABS# L ABS# (0-10) Total Protein Albumin Globulin TSH Urine Color Urine Appearance Urine pH Ur Specific Gravit y Urine Protein Urine Glucose (UA) Urine Ketones Urine Blood Urine Nitrate Urine Bilirubin Urine Urobilinogen Ur Leukocyte Margarita ase EKG Data^: EKG 1: Attestation: I personally reviewed and interpreted this EKG as follows: EKG interpretation date: 11/07/20 EKG interpretation time: 14:52 Interpretation: Twelve-lead EKG shows a regular sinus rhythm at a rate of 90. OR interval 138, QRS duration 94, QTc 437. Normal axis. Interpretation: Sinus rhythm. Nonspecific ST segment abnormalities. Computer generated interpretation: Chest X-Ray 11/07/20 14:35 IMPRESSION: 1. No acute cardiopulmonary finding. Abdomen/Pelvis CT 11/07/20 16:18 IMPRESSION: No acute intra-abdominal findings. Radiation Dose CTDIVOL = (mGy): DLP = 1716.18 (mGy-cm) Head CT 11/07/20 16:19 IMPRESSION: No evidence of active or acute intracranial pathologic process, hemorrhage, or trauma. Radiation Dose CTDIVOL = (mGy): DLP = 806.67 (mGy-cm) Discharge Plan Discharge Patient Disposition: Home Clinical Impression: Hyperglycemia due to type 2 diabetes mellitus, Weakness generalized Condition: Stable Prescriptions: No Action Victoza 2-Kip 0.6 mg/0.1 mL (18 mg/3 mL) pen injector 1.2 mg SUBCUT Q24H RF: 0 albuterol sulfate [ProAir HFA] 90 mcg/actuation HFA aerosol inhaler 2 puff INHALATION Q4H PRN (Reason: Shortness Of Breath) RF: 0 trazodone 100 mg tablet 300 mg PO .bedtime PRN (Reason: insomnia) Qty: 90 RF: 0 venlafaxine [Effexor XR] 150 mg capsule,extended release 24hr 150 mg PO QAM Qty: 30 RF: 0 buspirone 15 mg tablet 15 mg PO TID Qty: 90 RF: 0 fluconazole [Diflucan] 150 mg tablet 150 mg PO Q3D Qty: 2 RF: 0 metformin 1,000 mg tablet,ER shabbir.retention 24 hr 1,000 mg PO BID Qty: 14 RF: 0 lisinopril 5 mg tablet 5 mg PO DAILY Qty: 7 RF: 0 hydroxyzine HCl 50 mg Tablet 50 mg PO TID PRN (Reason: Anxiety) RF: 0 Discharge Orders: Discharge ED (Routine); Ordered 11/07/20 Ordered By: Ronaldo Klein Referrals: Olivia Duke MD [Primary Care Provider] - Discharge Diet: Diabetic Discharge Activity: Resume usual activity Patient Instructions: Weakness (ED), Diabetic Hyperglycemia (ED) Activity Restrictions/Additional Instructions: Thank you for visiting the emergency department. You were seen and evaluated for high blood sugar, high blood pressure, and generalized weakness. There is no evidence of diabetic ketoacidosis on laboratory studies. The most likely cause of your high blood sugar and high blood pressure is inability to obtain medications. Please follow-up with your primary care provider. Please return to the emergency department for anything that you are concerned about and feel needs emergency department evaluation. Based on your current living situation I recommend exploring options regarding long-term care at a residential facility. Coding Level of Care Code ED Hospital Personnel Director for [facility]
[2020-11-07 14:21] LABS: Glucose Point of Care 594 mg/dL (70-110)
--- NOTE | 2020-11-07 14:35 | XR_ITS ---
WS: [id number] Exam: XR chest 1V portable [id number] Date/Time of Exam: 11/07/2020 2:48 PM Reason For Exam: cough Comparison 12/13/2018. The lungs are fully expanded. Chronic plaque atelectasis in the left lower lung zone. Several old rig ht rib fractures noted. No pleural effusion. Normal cardiomediastinal structures. There is hardware i n the lower cervical spine. Monitoring leads superimpose the chest. XR/XR chest 1V portable [id number] IMPRESSION: 1. No acute cardiopulmonary finding.
--- NOTE | 2020-11-07 14:36 | ECG_ITS ---
[facility] Test Date: 2020-11-07 Pat Name: Maya Ramirez Department: Room: Gender: Female Pressure Dispatcher: : [id number] Requested By: Ronaldo Klein Order Number: [id number] Kylah MD: Fernando Reyes M.D. Measurements Intervals [place] Rate: 90 P: 60 MO: 138 QRS: 51 QRSD: 94 T: 76 QT: 356 QTc: 437 Interpretive Statements SINUS RHYTHM NONSPECIFIC ST & T-WAVE ABNORMALITY Compared to ECG 12/13/2018 08:54:19 No significant changes Electronically Signed On 11-07-2020 21:05:09 CDT by Fernando Reyes M.D. [email or web address]
[2020-11-07 14:45] LABS: Basophils % 0.4 %; Eosinophils # 0.1 10^3/uL (0.0-0.8); Eosinophils % 1.4 %; Hematocrit 45.1 % (37.0-47.0); Hemoglobin 15.3 g/dL (11.5-15.3); Lymphocytes # 2.3 10^3/uL (0.8-4.8); Lymphocytes % 22.5 %; Mean Corpuscular HGB Conc 33.9 g/dL (30.0-36.0); Mean Corpuscular Hemoglobin 29.1 pg (28.0-34.0); Mean Corpuscular Volume 85.7 fl (81-99); Monocytes % 9.9 %; Neutrophils # 6.73 10^3/uL (1.8-7.7); Neutrophils % 65.4 %; Nucleated Red Blood Cells % 0 %; Platelet Count 402 10^3/cmm (130-400); Red Blood Count 5.26 10^6/uL (4.1-5.3); White Blood Count 10.3 10^3/uL (4.0-10.0)
[2020-11-07 14:49] LABS: ABG PH Result 7.42 (7.35-7.45); Arterial Blood Gas Hematocrit 46.7 % (37-47); Base Excess ABG 2.1 mmol/L (-2.0-2.0); Blood Gas Allen Test Pos; Blood Gas Sample Type Arterial; HCO3 ABG 26.8 mmol/L (22-26); PO2 ABG 64.6 mmHg (80.0-100.0)
[2020-11-07 14:50] LABS: Blood Gas Operator Identificat ED; Blood Gas Sample Site Radial, right; Oxygen Device ROOM AIR
[2020-11-07 14:56] LABS: Troponin(5th) Baseline 14 ng/L (0-10)
[2020-11-07 15:03] LABS: Alanine Aminotransferase 12 U/L (0-33); Albumin Level 4.3 g/dL (3.5-5.2); Alkaline Phosphatase 161 IU/L (35-105); Anion Gap 19.6 (5-19); Aspartate Amino Transferase 12 U/L (0-32); Blood Urea Nitrogen 17 mg/dL (8-23); Calcium 9.4 mg/dL (8.5-10.5); Carbon Dioxide 24 mmol/L (22-29); Chloride 90 mmol/L (98-107); Globulin 2.4 g/dL (1.3-4.6); Glomerular Filtration Rate 71.5 mL/min (90-130); Osmolality Calculated 298 mOsm/kg (285-295); Potassium 3.6 mmol/L (3.5-5.1); Sodium 130 mmol/L (136-145); Thyroid Stimulating Hormone 1.28 uIU/mL (0.27-4.20); Total Bilirubin 0.2 mg/dL (0.15-1.2); Total Protein 6.7 g/dL (6.6-8.7)
[2020-11-07 15:05] LABS: Glucose 571 mg/dL (65-115)
[2020-11-07 16:10] LABS: Add Urine Microscopic? NO; Charge for UA Resulting for Rev
--- NOTE | 2020-11-07 16:18 | CTR_ITS ---
PROCEDURE INFORMATION: Exam: CT Abdomen And Pelvis With Contrast Exam date and time: 11/07/2020 4:18 PM Age: 65 years old Clinical indication: Abdominal pain; Generalized; Prior surgery; Surgery type: Gb, hyst, breast; Patient HX: Fall, right rib pain. Abd pain. Elevated blood glucose TECHNIQUE: Imaging protocol: Computed tomography of the abdomen and pelvis with contrast. Radiation optimization: All CT scans at this facility use at least one of these dose optimization techniques: automated exposure control; mA and/or kV adjustment per patient size (includes targeted exams where dose is matched to clinical indication); or iterative reconstruction. Contrast material: OMNI 300; Contrast volume: 95 ml; Contrast route: INTRAVENOUS (IV); COMPARISON: CT abdomen pelvis w con* [id number] 09/07/2019 12:00 PM RADIATION DOSE METRICS: Total DLP (mGy-cm): 1716.18 FINDINGS: Liver: Focal fat deposition adjacent the falciform ligament. No mass. Gallbladder and bile ducts: Cholecystectomy clips. No ductal dilation. Pancreas: Normal. No ductal dilation. Spleen: Normal. No splenomegaly. Adrenal glands: Normal. No mass. Kidneys and ureters: Vascular calcifications noted at the renal azeb. No hydronephrosis. Stomach and bowel: Unremarkable. No obstruction. No mucosal thickening. Appendix: No evidence of appendicitis. Intraperitoneal space: Unremarkable. No free air. No significant fluid collection. Vasculature: Moderate atherosclerotic calcification of the abdominal aorta and its distal branches. No abdominal aortic aneurysm. Lymph nodes: Unremarkable. No enlarged lymph nodes. Urinary bladder: Unremarkable as visualized. Reproductive: Hysterectomy changes. Bones/joints: Nonunion of several old posterior right lower rib fractures, some of which are mildly displaced. Generalized osseous demineralization. Kyphoplasty material noted at the T12 vertebral body. There is also moderate diffuse vertebral body height loss of L1 which appears chronic. Minimal grade 1 anterolisthesis of L4 on L5. No acute fracture. Soft tissues: Unremarkable. CT/CT abdomen pelvis w con* [id number] IMPRESSION: No acute intra-abdominal findings. Radiation Dose CTDIVOL = (mGy): DLP = 1716.18 (mGy-cm)
--- NOTE | 2020-11-07 16:19 | CTR_ITS ---
PROCEDURE INFORMATION: Exam: CT Head Without Contrast Exam date and time: 11/07/2020 4:19 PM Age: 65 years old Clinical indication: Injury or trauma; Fall; Blunt trauma (contusions or hematomas); Additional info: Falls, increased TECHNIQUE: Imaging protocol: Computed tomography of the head without contrast. Total images: 206 Radiation optimization: All CT scans at this facility use at least one of these dose optimization techniques: automated exposure control; mA and/or kV adjustment per patient size (includes targeted exams where dose is matched to clinical indication); or iterative reconstruction. COMPARISON: CT head wo con* [id number] 12/13/2018 2:19 AM RADIATION DOSE METRICS: Total DLP (mGy-cm): 806.67 FINDINGS: Brain: No evidence of active or acute intracranial pathologic process, hemorrhage, or trauma. Mild small vessel ischemic disease with senile periventricular leukomalacia. No mass effect. No midline shift. No hyperdense MCA or insular ribbon sign. Cerebral arteriosclerosis. Atrophic changes greater than that anticipated for patient's chronological age. Cerebral ventricles: No ventriculomegaly. Paranasal sinuses: Visualized sinuses are unremarkable. No fluid levels. Mastoid air cells: Visualized mastoid air cells are well aerated. Bones/joints: Unremarkable. No acute fracture. Soft tissues: Unremarkable. CT/CT head wo con* [id number] IMPRESSION: No evidence of active or acute intracranial pathologic process, hemorrhage, or trauma. Radiation Dose CTDIVOL = (mGy): DLP = 806.67 (mGy-cm)
[2020-11-07 16:23] LABS: Bilirubin Urine Neg (Negative); Blood Urine Neg (Negative); Glucose Urine UA 4+ (Normal); Ketones Urine Negative (Negative); Leukocyte Esterase Urine Negative (Negative); Nitrate Urine Negative (Negative); Protein Urine Neg (Negative); Urine Appearance Clear (CLEAR); Urine Color Straw (Yellow); Urobilinogen Urine Norm (Negative); pH Urine 5 (5-7)
[2020-11-07] MEDS: insulin regular-human 100 units/1 mL 10 UNIT IVP (16:53)
[2020-11-07 17:12] LABS: Troponin 5 2HR 13.03 ng/L (0-10)
[2020-11-07 17:15] LABS: Troponin 5 2HR Delta -0.97 ABS# (0-10)
[2020-11-07] MEDS: iohexol 300 mg/mL 100 mL Btl IV (17:19)
[2020-11-07 17:45] LABS: Glucose Point of Care 329 mg/dL (70-110)
--- NOTE | 2020-11-11 10:41 | DCPLANNER ---
late entry - rn case manager hospice had message to speak with patient about possible [facility] placement. marine service manager called phone number [phone], no answer and no voicemail set up. marine service manager called friend, Lola, who was at work and could not speak with rn case manager hospice at this time. marine service manager explained to the friend that rn case manager hospice would need to speak with patient about placement to get her choices of where she wanted to be placed. Patients friend stated that she would go to the patients [facility] on 11.11.20 and call rn case manager hospice so that rn case manager hospice could speak with patient about placement.
== END 2020-11-07 20:20 | disposition home or self-care (01) ==
PROVIDERS: Emergency Provider Emergency Medicine; PCP Internal Medicine
DX: E11.65 Type 2 diabetes mellitus with hyperglycemia (principal); R53.1 Weakness; Z79.84 Long term (current) use of oral hypoglycemic drugs; I25.10 Atherosclerotic heart disease of native coronary artery without angina pectoris; J44.9 Chronic obstructive pulmonary disease, unspecified; I10 Essential (primary) hypertension; E11.42 Type 2 diabetes mellitus with diabetic polyneuropathy; F17.210 Nicotine dependence, cigarettes, uncomplicated
CPT/HCPCS: 36416; 36600; 70450; 71045; 74177; 80053; 81003; 82803; 82962; 84443; 84484; 85025; 93005; 96374; 99284; J1815; Q9967

== ENCOUNTER 2021-06-30 10:21 | Outpatient (CLI) | payer MEDICARE, MEDICAID, SELFPAY ==
--- NOTE | 2021-06-30 10:31 | MM_ITS ---
WS: [id number] VIEWS: MLO and CC views both breasts. 3D digital tomosynthesis is also included in this exam. Comparison made with prior exam of 09/03/2016, 06/13/2017, 08/13/2019.. Findings: There was no sign of mass, architectural distortion or suspicious calcification in either breast. Sta ble appearing nodular densities in both breasts.Fatty MM/[place] [id number] Impression: BI-RADS: 2-Benign FOLLOW-UP: 1 Year Follow-up This mammogram was also analyzed by the Computer Aided Detection System R2 Imag e Senior Analyst [employer].
== END 2021-06-30 10:22 | disposition home or self-care (01) ==
PROVIDERS: PCP Internal Medicine; Visit Provider Nurse Practitioner Family
DX: Z12.31 Encounter for screening mammogram for malignant neoplasm of breast (principal)
CPT/HCPCS: 77063; 77067

== ENCOUNTER 2021-08-28 13:25 | Outpatient (CLI) | payer MEDICARE, MEDICAID, SELFPAY ==
--- NOTE | 2021-08-28 13:41 | XR_ITS ---
WS: [id number] SCREENING DEXA SCAN Action CLINICAL INFORMATION: Screening osteoporosis COMPARISON: None. FINDINGS: The L1-L4 bone mineral density measures . This corresponds to a T score score of and Z score of . Left femoral neck bone mineral density measures 0.754 g/cm2. This corresponds to a T score of -2.0 an d Z score of -1.5. Right femoral neck bone mineral density measures 0.833 g/cm2. This corresponds to a T score -1.4of an d Z score of -0.9. Mean femoral neck bone mineral density measures 0.794 g/cm2. This corresponds to a T score of -1.7 an d Z score of -1.2. XR/XR DEXA axial skeleton* [id number] IMPRESSION: Osteopenia lumbar spine. Osteopenia in the femoral necks. Patient's FRAX calcul ated 10 year probability for major osteoporotic fracture is 26.2 % and osteopor otic hip fracture is 11.1%.
== END 2021-08-28 13:26 | disposition home or self-care (01) ==
LOC: RAD 13:27
PROVIDERS: PCP Internal Medicine; Visit Provider Nurse Practitioner Family
DX: Z78.0 Asymptomatic menopausal state (principal); Z13.820 Encounter for screening for osteoporosis; M85.89 Other specified disorders of bone density and structure, multiple sites
CPT/HCPCS: 77080

== ENCOUNTER 2021-10-14 13:01 | Emergency (ER) | payer MEDICARE, MEDICAID, SELFPAY ==
[2021-10-14 13:49] VITALS: BP 159/83; PULSE 94; RESP 16; TEMP 36.8; O2SAT 94
[2021-10-14 14:06] VITALS: BP 140/81; PULSE 92; RESP 17; O2SAT 94
--- NOTE | 2021-10-14 14:06 | ED_ITS ---
Documented by User: DENNIS Dennis 10/15/21 08:35 HPI - Dizziness General: Chief Complaint: Dizziness Stated Complaint: Can't stand and Diarrhea Time Seen by Provider: 10/14/21 13:57 History of Present Illness: HPI Narrative: Patient is a 66-year-old female comes to the ED with dizziness lightheaded. Symptoms started at rest approximately 3 days ago. She endorses having dizziness that she describes as a room spinning sensation. She also endorses having some lightheadedness as well. Symptoms worsen with certain head moveme nts and when getting up and moving around. She states that if she turns her head to the right her dizziness worsens. She endorses having nausea and vomiting due to dizziness symptoms. Endorses having ringing in her left ear that started 2 days ago. Denies any falls or head injury. Denies any chest pain or shortness of breath. Associated symptoms: Reports nausea, tinnitus (left ear) and vomiting; Denies chest pain, chills, headache(s), nasal congestion or palpitations Associated neuro symptoms: Deny numbness in extremities Review of Systems Const: Denies: fever(s), chills or fatigue Eyes: Denies: change in vision or eye discomfort ENMT: Reports: tinnitus (left ear); Denies: throat pain, odynophagia, nasal discharge or nasal congestion Card: Reports: lightheadedness; Denies: chest pain, palpitations, edema, swelling of feet/ankles, dyspnea on exertion or orthopnea Resp: Denies: dyspnea, productive cough or non-productive cough GI: Reports: nausea and vomiting; Denies: abdominal pain, diarrhea, constipation or hematochezia : Denies: flank pain, dysuria or hematuria Musc: Denies: neck pain, back pain or extremity swelling Skin/Breast: Denies: rash or new lesions Neuro: Reports: dizziness; Denies: headache(s), numbness in extremities or weakness in extremities COUNT INCLUDES THE [facility] ED PFSH: Medical History 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, drug screen ordered in August 2019 Borderline personality disorder CAD (coronary artery disease) Chronic post-traumatic stress disorder COPD (chronic obstructive pulmonary disease) DDD (degenerative disc disease), cervical DDD (degenerative disc disease), lumbar GERD (gastroesophageal reflux disease) Hypertension Major depressive disorder, recurrent episode, moderate with anxious distress Nicotine dependence, cigarettes, uncomplicated Polyneuropathy PTSD (post-traumatic stress disorder) RLS (restless legs syndrome) Uncontrolled type 2 diabetes mellitus, with long-term current use of insulin Surgical History History of carpal tunnel release of both wrists History of PTCA Hx of bilateral salpingectomy Hx of cholecystectomy Hx of hysterectomy Hx of neck surgery Hx of reduction mammoplasty Hx of shoulder surgery Hx of spinal fusion Family History Son No problems noted. Sister Cancer Sister No problems noted. Sister No problems noted. Mother Diabetes Other Hypertension Social History Smoking and tobacco status: current every day smoker cigarettes Packs smoked per day: 0.25 Quit status (tobacco): has tried quititng Second hand smoke exposure: No Smoking risk assessment/counseling performed?: Yes Tobacco counseling given: provider counseling, support program and counseling >3 minutes Alcohol intake: never Desire information about alcohol rehabilitation?: No Desire information about substance/drug rehabilitation?: No Counseling given: No Current gender identity: Female Physical Exam Const: COMMON NORMALS: patient oriented x3 and alert GENERAL APPEARANCE: cooperative HENMT: COMMON NORMALS: normocephalic HEAD & SCALP: normocephalic MOUTH: Normal oral and palatal mucosa present THROAT: posterior oropharynx normal and uvula midline Eye: COMMON NORMALS: Equal, round and reactive pupils present, EOMs intact bilaterally and conjunctivae normal CONJUNCTIVA: Yes conjunctivae normal PUPIL: Yes Equal, round and reactive pupils present OTHER: Patient has nystagmus when looking to the right side. Neck/C-Spine: COMMON NORMALS: supple GENERAL: Yes normal visual inspection Resp: COMMON NORMALS: normal respiratory effort, No retractions, No use of accessory muscles and clear to auscultation bilaterally AUSCULTATION: clear to auscultation bilaterally Cardio: COMMON NORMALS: regular rate, regular rhythm, S1 normal heart sound present, S2 normal heart sound present, No gallops present (Cardio), No clicks present (Cardio), No murmurs present (Cardio) and Peripheral pulses 2+ throu ghout RATE: regular rate RHYTHM: regular rhythm HEART SOUNDS: S1 normal heart sound present and S2 normal heart sound present PERIPHERAL PULSES: Peripheral pulses 2+ throughout GI: COMMON NORMALS: Normal to inspection, nondistended, normoactive bowel sounds present, Soft to palpation, non-tender and no masses PALPATION: Yes Soft to palpation : COMMON NORMALS: Yes no CVA tenderness BLADDER/KIDNEY EXAM: Yes no CVA tenderness Back/Pelvis: COMMON NORMALS: no CVA tenderness Extremity: COMMON NORMALS: normal to inspection Neuro: COMMON NORMALS: patient oriented x3 SENSORIUM/ORIENTATION: Yes alert GAIT: Yes Normal gait present Skin: GENERAL SKIN EXAM: dry skin Course Vital Signs: Vital signs: Vital Signs Temperature 98.2 F 10/14/21 13:49 Pulse Rate 87 10/14/21 15:33 Respiratory Rate 17 10/14/21 15:33 Blood Pressure 166/96 10/14/21 15:33 Pulse Oximetry 95 10/14/21 15:33 Oxygen Delivery Me thod 10/14/21 15:33 MDM - Dizziness Lab Data I reviewed the patient's lab results. : 10/14/21 14:55 10/14/21 14:55 Radiology Impressions Chest X-Ray 10/14/21 14:08 IMPRESSION: 1. Suboptimal evaluation due to body habitus and technique. 2. Mild pulmonary congestion. 3. Stable linear area of atelectasis versus scar LEFT lung. Head CT 10/14/21 15:28 IMPRESSION: 1. Negative for intracranial hemorrhage or mass effect. 2. Mild diffuse white matter disease likely reflecting chronic microvascular ischemic changes. Laboratory Results WBC 9.1 10^3/uL (4.0-10.0) 10/14/21 14:55 RBC 4.52 10^6/uL (4.1-5.3) 10/14/21 14:55 Hgb 13.7 g/dL (11.5-15.3) 10/14/21 14:55 Hct 41.6 % (37.0-47.0) 10/14/21 14:55 MCV 92.0 fl (81-99) 10/14/21 14:55 MCH 30.3 pg (28.0-34.0) 10/14/21 14:55 MCHC 32.9 g/dL (30.0-36.0) 10/14/21 14:55 RDW 13.3 % (12.1-15.1) 10/14/21 14:55 Plt Count 320 10^3/cmm (130-400) 10/14/21 14:55 MPV 8.2 fL (7.4-10.4) 10/14/21 14:55 Neut % (Auto) 66.2 % 10/14/21 14:55 Lymph % (Auto) 22.0 % 10/14/21 14:55 Thayer % (Auto) 6.6 % 10/14/21 14:55 Eos % (Auto) 4.7 % 10/14/21 14:55 Baso % (Auto) 0.3 % 10/14/21 14:55 Neut # (Auto) 6.04 10^3/uL (1.8-7.7) 10/14/21 14:55 Lymph # (Auto) 2.0 10^3/uL (0.8-4.8) 10/14/21 14:55 [place]ayer # (Auto) 0.6 10^3/uL (0.2-0.9) 10/14/21 14:55 Eos # (Auto) 0.4 10^3/uL (0.0-0.8) 10/14/21 14:55 Baso # (Auto) 0.0 10^3/uL (0.0-0.1) 10/14/21 14:55 Nucleated RBC % (auto) 0 % 10/14/21 14:55 Nucleated RBCs # 0.0 /100WBC 10/14/21 14:55 Sodium 138 mmol/L (136-145) 10/14/21 14:55 Potassium 4.0 mmol/L (3.5-5.1) 10/14/21 14:55 Chloride 97 mmol/L (98-107) L 10/14/21 14:55 Carbon Dioxide 29 mmol/L (22-29) 10/14/21 14:55 Anion Gap 16.0 (5-19) 10/14/21 14:55 BUN 12 mg/dL (8-23) 10/14/21 14:55 Creatinine 0.8 mg/dL (0.5-0.9) 10/14/21 14:55 GFR Calculation 71.3 mL/min (90-130) L 10/14/21 14:55 Glucose 205 mg/dL (65-115) H 10/14/21 14:55 Calculated Osmolality 292 mOsm/kg (285-295) 10/14/21 14:55 Calcium 10.1 mg/dL (8.5-10.5) 10/14/21 14:55 Total Bilirubin 0.2 mg/dL (0.15-1.2) 10/14/21 14:55 AST 36 U/L (0-32) H 10/14/21 14:55 ALT 25 U/L (0-33) 10/14/21 14:55 Alkaline Phosphatase 90 U/L (35-105) 10/14/21 14:55 Troponin T Baseline 14 ng/L (0-10) H 10/14/21 14:55 Troponin T 120 Minute 13.00 ng/L (0-10) H 10/14/21 17:03 Delta Troponin T -1.00 ABS# (0-10) L 10/14/21 17:03 NT-Pro-B Natriuret Pep 23 pg/mL (0-125) 10/14/21 14:55 Total Protein 7.5 g/dL (6.6-8.7) 10/14/21 14:55 Albumin 4.7 g/dL (3.5-5.2) 10/14/21 14:55 Globulin 2.8 g/dL (1.3-4.6) 10/14/21 14:55 Lipase 59 U/L (13-60) 10/14/21 14:55 Urine Color Yellow (Yellow) 10/14/21 15:28 Urine Appearance Clear (CLEAR) 10/14/21 15:28 Urine pH 6 (5-7) 10/14/21 15:28 Ur Specific [place] 1.020 (1.005-1.030) 10/14/21 15:28 Urine Protein 1+ (Negative) H 10/14/21 15:28 Urine Glucose (UA) 1+ (Normal) H 10/14/21 15:28 Urine Ketones Negative (Negative) 10/14/21 15:28 Urine Blood Neg (Negative) 10/14/21 15:28 Urine Nitrate Negative (Negative) 10/14/21 15:28 Urine Bilirubin Neg (Negative) 10/14/21 15:28 Urine Urobilinogen Norm mg/dL (Negative) 10/14/21 15:28 Ur Leukocyte Esterase Negative (Negative) 10/14/21 15:28 Urine RBC 0-4 /hpf (0-2) H 10/14/21 15:28 Urine WBC 0-4 /hpf (0-5) H 10/14/21 15:28 Ur Squamous Epith Cells 0-4 /hpf (0-5) H 10/14/21 15:28 Amorphous Sediment Not Reportable 10/14/21 15:28 Urine Bacteria None /hpf (NONE) 10/14/21 15:28 Hyaline Casts 0-4 /lpf H 10/14/21 15:28 EKG Data EKG 1: EKG interpretation date: 10/14/21 Interpretation: Sinus rhythm, 88 bpm, no ST segment elevation or depression seen. Discharge Plan Discharge Patient Disposition: Home Clinical Impression: Meniere disease Qualifiers: Laterality: left Qualified Code(s): H81.02 - Meniere's disease, left ear Condition: Stable Prescriptions: New meclizine 25 mg tablet,chewable 25 mg PO BID PRN (Reason: dizziness) Qty: 20 0RF No Action Victoza 2-Kip 0.6 mg/0.1 mL (18 mg/3 mL) pen injector 1.2 mg SUBCUT Q24H albuterol sulfate [ProAir HFA] 90 mcg/actuation HFA aerosol inhaler 2 puff INHALATION Q4H PRN (Reason: Shortness Of Breath) trazodone 300 mg tablet 300 mg PO .HS Qty: 90 3RF gabapentin 300 mg tablet extended release 24 hr 300 mg PO .HS 90 Days Qty: 90 2RF fluconazole [Diflucan] 150 mg tablet 150 mg PO Q3D Qty: 2 0RF buspirone 7.5 mg tablet 10 mg PO TID metformin 1,000 mg tablet,ER shabbir.retention 24 hr 1,000 mg PO BID Qty: 14 0RF lisinopril 5 mg tablet 5 mg PO DAILY Qty: 7 0RF venlafaxine 75 mg capsule,extended release 24hr 175 mg PO DAILY 3RF Rx Instructions: dose increase hydroxyzine HCl 50 mg Tablet 50 mg PO TID PRN (Reason: Anxiety) Discharge Orders: Discharge ED (Routine); Ordered 10/14/21 Ordered By: Immanuel Macedo Referrals: Srinivasa Garzon MD [Primary Care Provider] - Discharge Diet: Regular Discharge Activity: Increase activity as tolerated Patient Instructions: Meniere Disease (ED), Dizziness (ED) Activity Restrictions/Additional Instructions: Follow-up with medical provider as directed. Case management should be counting in the next several days set up an appointment with ENT doctor. take medications as prescribed. Return to the ER or your medical provider if condition worsens. Please read and understand discharge instructions. Thank you for choosing [facility] for your healthcare needs today. Please realize this is an emergency room and that we are providing you with a medical screening exam and this may not be complete and all inclusive of all the testing and or work up that you may need to determine your ailment or severity of your illness. It is very important that you follow up as instructed or that you return to the Emergency Department should you have concerns or if your condition changes or worsens in any way. Sign Out Sign Out Data: Patient Sign Out occurred on 10/14/21 at 17:09. Patient's care was discussed, and care was transferred from to Immanuel Macedo. Post-Handoff Eval: Patient was alert and oriented with no signs of distress. 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, drug screen ordered in August 2019 Borderline personality disorder CAD (coronary artery disease) Chronic post-traumatic stress disorder COPD (chronic obstructive pulmonary disease) DDD (degenerative disc disease), cervical DDD (degenerative disc disease), lumbar GERD (gastroesophageal reflux disease) Hypertension Major depressive disorder, recurrent episode, moderate with anxious distress Nicotine dependence, cigarettes, uncomplicated Polyneuropathy PTSD (post-traumatic stress disorder) RLS (restless legs syndrome) Uncontrolled type 2 diabetes mellitus, with long-term current use of insulin Surgical History History of carpal tunnel release of both wrists History of PTCA Hx of bilateral salpingectomy Hx of cholecystectomy Hx of hysterectomy Hx of neck surgery Hx of reduction mammoplasty Hx of shoulder surgery Hx of spinal fusion Family History Son No problems noted. Sister Cancer Sister No problems noted. Sister No problems noted. Mother Diabetes Other Hypertension Social History Smoking and tobacco status: current every day smoker cigarettes Packs smoked per day: 0.25 Quit status (tobacco): has tried quititng Second hand smoke exposure: No Smoking risk assessment/counseling performed?: Yes Tobacco counseling given: provider counseling, support program and counseling >3 minutes Alcohol intake: never Desire information about alcohol rehabilitation?: No Desire information about substance/drug rehabilitation?: No Counseling given: No Current gender identity: Female Course Vital Signs: Vital signs: Vital Signs Temperature 98.2 F 10/14/21 13:49 Pulse Rate 87 10/14/21 15:33 Respiratory Rate 17 10/14/21 15:33 Blood Pressure 166/96 10/14/21 15:33 Pulse Oximetry 95 10/14/21 15:33 Oxygen Delivery Me thod 10/14/21 15:33 MDM - Dizziness Medical Decision Making Patient came in by EMS from [facility] facility for complaints of dizziness for the last 3 days. Patient was initially examined by Jean Quintero PA-C. Labor atory values and imaging was unremarkable. Repeat troponin at 2 hours was unchanged. Patient was believed to have M?ni?re's versus labyrinthitis and was recommended to follow-up with [facility] hear[facility] laborer. Lab Data : 10/14/21 14:55 10/14/21 14:55 Radiology Impressions Chest X-Ray 10/14/21 14:08 IMPRESSION: 1. Suboptimal evaluation due to body habitus and technique. 2. Mild pulmonary congestion. 3. Stable linear area of atelectasis versus scar LEFT lung. Head CT 10/14/21 15:28 IMPRESSION: 1. Negative for intracranial hemorrhage or mass effect. 2. Mild diffuse white matter disease likely reflecting chronic microvascular ischemic changes. Laboratory Results WBC 9.1 10^3/uL (4.0-10.0) 10/14/21 14:55 RBC 4.52 10^6/uL (4.1-5.3) 10/14/21 14:55 Hgb 13.7 g/dL (11.5-15.3) 10/14/21 14:55 Hct 41.6 % (37.0-47.0) 10/14/21 14:55 MCV 92.0 fl (81-99) 10/14/21 14:55 MCH 30.3 pg (28.0-34.0) 10/14/21 14:55 MCHC 32.9 g/dL (30.0-36.0) 10/14/21 14:55 RDW 13.3 % (12.1-15.1) 10/14/21 14:55 Plt Count 320 10^3/cmm (130-400) 10/14/21 14:55 MPV 8.2 fL (7.4-10.4) 10/14/21 14:55 Neut % (Auto) 66.2 % 10/14/21 14:55 Lymph % (Auto) 22.0 % 10/14/21 14:55 Thayer % (Auto) 6.6 % 10/14/21 14:55 Eos % (Auto) 4.7 % 10/14/21 14:55 Baso % (Auto) 0.3 % 10/14/21 14:55 Neut # (Auto) 6.04 10^3/uL (1.8-7.7) 10/14/21 14:55 Lymph # (Auto) 2.0 10^3/uL (0.8-4.8) 10/14/21 14:55 Thayer # (Auto) 0.6 10^3/uL (0.2-0.9) 10/14/21 14:55 Eos # (Auto) 0.4 10^3/uL (0.0-0.8) 10/14/21 14:55 Baso # (Auto) 0.0 10^3/uL (0.0-0.1) 10/14/21 14:55 Nucleated RBC % (auto) 0 % 10/14/21 14:55 Nucleated RBCs # 0.0 /100WBC 10/14/21 14:55 Sodium 138 mmol/L (136-145) 10/14/21 14:55 Potassium 4.0 mmol/L (3.5-5.1) 10/14/21 14:55 Chloride 97 mmol/L (98-107) L 10/14/21 14:55 Carbon Dioxide 29 mmol/L (22-29) 10/14/21 14:55 Anion Gap 16.0 (5-19) 10/14/21 14:55 BUN 12 mg/dL (8-23) 10/14/21 14:55 Creatinine 0.8 mg/dL (0.5-0.9) 10/14/21 14:55 GFR Calculation 71.3 mL/min (90-130) L 10/14/21 14:55 Glucose 205 mg/dL (65-115) H 10/14/21 14:55 Calculated Osmolality 292 mOsm/kg (285-295) 10/14/21 14:55 Calcium 10.1 mg/dL (8.5-10.5) 10/14/21 14:55 Total Bilirubin 0.2 mg/dL (0.15-1.2) 10/14/21 14:55 AST 36 U/L (0-32) H 10/14/21 14:55 ALT 25 U/L (0-33) 10/14/21 14:55 Alkaline Phosphatase 90 U/L (35-105) 10/14/21 14:55 Troponin T Baseline 14 ng/L (0-10) H 10/14/21 14:55 Troponin T 120 Minute 13.00 ng/L (0-10) H 10/14/21 17:03 Delta Troponin T -1.00 ABS# (0-10) L 10/14/21 17:03 NT-Pro-B Natriuret Pep 23 pg/mL (0-125) 10/14/21 14:55 Total Protein 7.5 g/dL (6.6-8.7) 10/14/21 14:55 Albumin 4.7 g/dL (3.5-5.2) 10/14/21 14:55 Globulin 2.8 g/dL (1.3-4.6) 10/14/21 14:55 Lipase 59 U/L (13-60) 10/14/21 14:55 Urine Color Yellow (Yellow) 10/14/21 15:28 Urine Appearance Clear (CLEAR) 10/14/21 15:28 Urine pH 6 (5-7) 10/14/21 15:28 Ur Specific [place] 1.020 (1.005-1.030) 10/14/21 15:28 Urine Protein 1+ (Negative) H 10/14/21 15:28 Urine Glucose (UA) 1+ (Normal) H 10/14/21 15:28 Urine Ketones Negative (Negative) 10/14/21 15:28 Urine Blood Neg (Negative) 10/14/21 15:28 Urine Nitrate Negative (Negative) 10/14/21 15:28 Urine Bilirubin Neg (Negative) 10/14/21 15:28 Urine Urobilinogen Norm mg/dL (Negative) 10/14/21 15:28 Ur Leukocyte Esterase Negative (Negative) 10/14/21 15:28 Urine RBC 0-4 /hpf (0-2) H 10/14/21 15:28 Urine WBC 0-4 /hpf (0-5) H 10/14/21 15:28 Ur Squamous Epith Cells 0-4 /hpf (0-5) H 10/14/21 15:28 Amorphous Sediment Not Reportable 10/14/21 15:28 Urine Bacteria None /hpf (NONE) 10/14/21 15:28 Hyaline Casts 0-4 /lpf H 10/14/21 15:28 Discharge Plan Discharge Patient Disposition: Home Clinical Impression: Meniere disease Qualifiers: Laterality: left Qualified Code(s): H81.02 - Meniere's disease, left ear Condition: Stable Prescriptions: New meclizine 25 mg tablet,chewable 25 mg PO BID PRN (Reason: dizziness) Qty: 20 0RF No Action Victoza 2-Kip 0.6 mg/0.1 mL (18 mg/3 mL) pen injector 1.2 mg SUBCUT Q24H albuterol sulfate [ProAir HFA] 90 mcg/actuation HFA aerosol inhaler 2 puff INHALATION Q4H PRN (Reason: Shortness Of Breath) trazodone 300 mg tablet 300 mg PO .HS Qty: 90 3RF gabapentin 300 mg tablet extended release 24 hr 300 mg PO .HS 90 Days Qty: 90 2RF fluconazole [Diflucan] 150 mg tablet 150 mg PO Q3D Qty: 2 0RF buspirone 7.5 mg tablet 10 mg PO TID metformin 1,000 mg tablet,ER shabbir.retention 24 hr 1,000 mg PO BID Qty: 14 0RF lisinopril 5 mg tablet 5 mg PO DAILY Qty: 7 0RF venlafaxine 75 mg capsule,extended release 24hr 175 mg PO DAILY 3RF Rx Instructions: dose increase hydroxyzine HCl 50 mg Tablet 50 mg PO TID PRN (Reason: Anxiety) Discharge Orders: Discharge ED (Routine); Ordered 10/14/21 Ordered By: Immanuel Macedo Referrals: Srinivasa Garzon MD [Primary Care Provider] - Discharge Diet: Regular Discharge Activity: Increase activity as tolerated Patient Instructions: Meniere Disease (ED), Dizziness (ED) Activity Restrictions/Additional Instructions: Follow-up with medical provider as directed. Case management should be counting in the next several days set up an appointment with ENT doctor. take medications as prescribed. Return to the ER or your medical provider if condition worsens. Please read and understand discharge instructions. Thank you for choosing [facility] for your healthcare needs today. Please realize this is an emergency room and that we are providing you with a medical screening exam and this may not be complete and all inclusive of all the testing and or work up that you may need to determine your ailment or severity of your illness. It is very important that you follow up as instructed or that you return to the Emergency Department should you have concerns or if your condition changes or worsens in any way. Sign Out Sign Out Data: Patient Sign Out occurred on 10/14/21 at 17:09. Patient's care was discussed, and care was transferred from to Immanuel Macedo. Post-Handoff Eval: Patient was alert and oriented with no signs of distress. Coding Level of Care Code ED Conservation Educator for Chg Fwd Exam Comprehensive
--- NOTE | 2021-10-14 14:08 | XR_ITS ---
WS: [id number] PORTABLE CHEST HISTORY: Lightheadedness upon exertion COMPARISON: 11/07/2020 Quality of this examination is suboptimal due to technique and body habitus. Mild linear atelectasis in the mid LEFT lung. Similar to the prior study. Small amount of pulmonary c ongestion and edema. No pleural effusion or pneumothorax. Pleural plaque or prior rib fractures in th e RIGHT lateral thorax. Cardiac size: Normal. Mediastinum/Aorta: Normal mediastinum. Prior cervical fusion. XR/XR chest 1V portable [id number] IMPRESSION: 1. Suboptimal evaluation due to body habitus and technique. 2. Mild pulmonary congestion. 3. Stable linear area of atelectasis versus scar LEFT lung.
--- NOTE | 2021-10-14 14:37 | ECG_ITS ---
[facility] Test Date: 2021-10-14 Pat Name: Maya Ramirez Department: Room: Gender: Female It Technician: : 1955 Requested By: Jean Quintero Order Number: [id number] Montero MD: Fernando Reyes M.D. Measurements Intervals [place] Rate: 88 P: 56 AR: 161 QRS: 66 QRSD: 88 T: 79 QT: 371 QTc: 449 Interpretive Statements SINUS RHYTHM Compared to ECG 11/07/2020 14:44:22 T-wave abnormality no longer present Electronically Signed On 10-14-2021 19:44:11 CDT by Fernando Reyes M.D. [id number]
[2021-10-14] MEDS: meclizine 25 mg tablet 50 MG PO (14:43)
[2021-10-14 14:57] VITALS: BP 147/76; PULSE 85; RESP 17; O2SAT 96
[2021-10-14 15:01] LABS: Basophils % 0.3 %; Eosinophils # 0.4 10^3/uL (0.0-0.8); Eosinophils % 4.7 %; Hematocrit 41.6 % (37.0-47.0); Hemoglobin 13.7 g/dL (11.5-15.3); Mean Corpuscular HGB Conc 32.9 g/dL (30.0-36.0); Mean Corpuscular Hemoglobin 30.3 pg (28.0-34.0); Mean Platelet Volume 8.2 fL (7.4-10.4); Monocytes # 0.6 10^3/uL (0.2-0.9); Monocytes % 6.6 %; Neutrophils # 6.04 10^3/uL (1.8-7.7); Neutrophils % 66.2 %; Nucleated Red Blood Cells % 0 %; Platelet Count 320 10^3/cmm (130-400); Red Blood Count 4.52 10^6/uL (4.1-5.3); Red Cell Distribution Width 13.3 % (12.1-15.1); White Blood Count 9.1 10^3/uL (4.0-10.0)
[2021-10-14 15:26] LABS: Troponin(5th) Baseline 14 ng/L (0-10)
--- NOTE | 2021-10-14 15:28 | CTR_ITS ---
PROCEDURE INFORMATION: Exam: CT Head Without Contrast Exam date and time: 10/14/2021 3:53 PM Age: 66 years old Clinical indication: Dizziness; Additional info: Dizziness, unable to stand, TECHNIQUE: Imaging protocol: Computed tomography of the head without contrast. Radiation optimization: All CT scans at this facility use at least one of these dose optimization techniques: automated exposure control; mA and/or kV adjustment per patient size (includes targeted exams where dose is matched to clinical indication); or iterative reconstruction. COMPARISON: CT head wo con* [id number] 11/07/2020 5:10 PM RADIATION DOSE METRICS: Total DLP (mGy-cm): 1086.58 FINDINGS: Brain: Mild diffuse white matter disease likely reflecting chronic microvascular ischemic changes. Cerebral ventricles: No ventriculomegaly. Paranasal sinuses: Visualized sinuses are unremarkable. No fluid levels. Mastoid air cells: Visualized mastoid air cells are well aerated. Bones/joints: Unremarkable. No acute fracture. Soft tissues: Unremarkable. CT/CT head wo con* [id number] IMPRESSION: 1. Negative for intracranial hemorrhage or mass effect. 2. Mild diffuse white matter disease likely reflecting chronic microvascular ischemic changes.
[2021-10-14 15:33] VITALS: BP 166/96; PULSE 87; RESP 17; O2SAT 95
[2021-10-14 15:36] LABS: Add Urine Microscopic? YES; Bilirubin Urine Neg (Negative); Blood Urine Neg (Negative); Glucose Urine UA 1+ (Normal); Ketones Urine Negative (Negative); Leukocyte Esterase Urine Negative (Negative); Nitrate Urine Negative (Negative); Protein Urine 1+ (Negative); Urine Appearance Clear (CLEAR); Urine Color Yellow (Yellow); Urobilinogen Urine Norm (Negative); pH Urine 6 (5-7)
[2021-10-14 15:36] LABS: Alanine Aminotransferase 25 U/L (0-33); Albumin Level 4.7 g/dL (3.5-5.2); Alkaline Phosphatase 90 U/L (35-105); Aspartate Amino Transferase 36 U/L (0-32); Blood Urea Nitrogen 12 mg/dL (8-23); Calcium 10.1 mg/dL (8.5-10.5); Carbon Dioxide 29 mmol/L (22-29); Chloride 97 mmol/L (98-107); Globulin 2.8 g/dL (1.3-4.6); Glomerular Filtration Rate 71.3 mL/min (90-130); Glucose 205 mg/dL (65-115); Lipase 59 U/L (13-60); NT Pro B Type Natriuretic Pept 23 pg/mL (0-125); Osmolality Calculated 292 mOsm/kg (285-295); Sodium 138 mmol/L (136-145); Total Bilirubin 0.2 mg/dL (0.15-1.2); Total Protein 7.5 g/dL (6.6-8.7)
[2021-10-14 15:46] LABS: Add Urine Culture? No; Hyaline Casts Urine 0-4 /lpf; RBC Urine 0-4 /hpf (0-2); Squamous Epithelial Cell Urine 0-4 /hpf (0-5); WBC Urine 0-4 /hpf (0-5)
--- NOTE | 2021-10-14 17:50 | ECG_ITS ---
[facility] Test Date: 2021-10-14 Pat Name: Maya Ramirez Department: Room: Gender: Female Anesthesia Director: : 1955 Requested By: Jean Quintero Order Number: [id number] Montero MD: Fernando Reyes M.D. Measurements Intervals [place] Rate: 97 P: 40 AK: 145 QRS: 53 QRSD: 84 T: 57 QT: 299 QTc: 381 Interpretive Statements SINUS RHYTHM NONSPECIFIC T-WAVE ABNORMALITY Compared to ECG 10/14/2021 14:37:27 T-wave abnormality now present Electronically Signed On 10-14-2021 19:48:48 CDT by Fernando Reyes M.D. [id number]
--- NOTE | 2021-10-15 14:15 | DCPLANNER ---
Addendum entered by Daniela Hampton 11/26/21 14:58: Patient did not attend appointment scheduled with ENT Addendum entered by Daniela Hampton 10/20/21 08:20: Patient has a follow up appointment scheduled for Tuesday, November 16, 2021 at 10:[address] Julien at ENT. Clinic will call patient with appointment information. Original Note: restaurant service manager had message to schedule a follow up appointment for patient with ENT. restaurant service manager sent patients information to the front office staff at ENT. Patients information will be printed and reviewed. Clinic will call patient with appointment information.
== END 2021-10-14 18:20 | disposition home or self-care (01) ==
PROVIDERS: Emergency Medicine; Physician Assistant; Emergency Provider Nurse Practitioner Family; PCP Internal Medicine
DX: H81.02 Meniere's disease, left ear (principal); Z79.84 Long term (current) use of oral hypoglycemic drugs; F17.210 Nicotine dependence, cigarettes, uncomplicated; I25.10 Atherosclerotic heart disease of native coronary artery without angina pectoris; J44.9 Chronic obstructive pulmonary disease, unspecified; I10 Essential (primary) hypertension; E11.9 Type 2 diabetes mellitus without complications
CPT/HCPCS: 70450; 71045; 80053; 81001; 83690; 83880; 84484; 85025; 93005; 99285; J8597

== ENCOUNTER 2022-01-18 10:58 | Outpatient (CLI) | payer MEDICARE, MEDICAID, SELFPAY ==
--- NOTE | 2022-01-18 11:08 | MR_ITS ---
WS: [id number] MRI BRAIN WITHOUT CONTRAST HISTORY: MENTAL STATUS CHANGES COMPARISON: 10/06/[address] head 10/14/2021, 11/07/2020 TECHNIQUE: Diffusion imaging, multiplanar T1, T2 and FLAIR imaging obtained. Quality of this examination is compromised by motion artifact. Patient was unable to remain still for this examination. New signal abnormality noted within the RIGHT cerebellum of increased signal on the diffusion imagin g. Mixed signal on the ADC mapping. There is also mixed signal on the FLAIR sequence and predominantl y low signal on the T1 sequence. This was not present on the prior MRI from 2018. Present on the head CT from 10/14/2021 at the cerebellum is difficult to evaluate by CT. No additional diffusion-weighted abnormalities are identified. There is extensive confluent periventr icular white matter signal abnormalities which do extend to involve the corpus callosum. Additional s ubcortical white matter signal abnormalities from ischemia. Mild cerebral atrophy. No hemorrhage. Ventricles are normal size. No hydrocephalus. No abnormality noted the sella turcica. Dural venous sinuses and [place] demonstrate no abnormality on this unenhanced studies. Paranasal sinuses: Clear. Mastoid air cells: Normal. Calvarium and scalp: Intact. MR/MR head wo con* [id number] IMPRESSION: 1. New diffusion-weighted abnormality involving the RIGHT cerebellum. Suspect this is probably a subacute infarct. As this has not been previously described recommend follow-up MRI brain with and without contrast for further evaluation. Evaluation for underlying neoplasm or venous malformation recommended. 2. Extensive, confluent periventricular white matter disease extends to involv e the corpus callosum. These changes may be related to severe small vessel isch emic disease. Demyelination may appear similar.
== END 2022-01-18 10:59 | disposition home or self-care (01) ==
PROVIDERS: PCP Internal Medicine; Visit Provider Internal Medicine
DX: R41.82 Altered mental status, unspecified (principal)
CPT/HCPCS: 70551

== ENCOUNTER → 2023-11-16 15:46 | Outpatient (BNVA) | payer MEDICARE, MEDICAID, SELFPAY | PROVIDERS: PCP Internal Medicine; Visit Provider Podiatrist Foot & Ankle Surgery | DX: L60.3 Nail dystrophy (principal); I73.9 Peripheral vascular disease, unspecified; G62.9 Polyneuropathy, unspecified; E11.42 Type 2 diabetes mellitus with diabetic polyneuropathy; Z79.4 Long term (current) use of insulin; Z79.84 Long term (current) use of oral hypoglycemic drugs | CPT/HCPCS: 11721; 99203 ==